=== PATIENT | male | born 1980 | race Caucasian/White ===

== ENCOUNTER → 2020-07-02 11:08 | Outpatient (BNVA) | payer MEDICARE, MEDICAID, SELFPAY | PROVIDERS: PCP Internal Medicine; Visit Provider Surgery | DX: E66.3 Overweight (principal); Z68.28 Body mass index [BMI] 28.0-28.9, adult; K90.9 Intestinal malabsorption, unspecified; Z98.84 Bariatric surgery status | CPT/HCPCS: 99213 ==

== ENCOUNTER → 2020-07-29 14:39 | Outpatient (BNVA) | payer MEDICARE, MEDICAID, SELFPAY | PROVIDERS: PCP Internal Medicine; Referring Provider Internal Medicine; Visit Provider Internal Medicine Cardiovascular Disease | DX: I42.9 Cardiomyopathy, unspecified (principal); Z98.84 Bariatric surgery status | CPT/HCPCS: 99212 ==

== ENCOUNTER → 2020-08-13 08:19 | Outpatient (BNVA) | payer MEDICARE, MEDICAID, SELFPAY | PROVIDERS: PCP Internal Medicine; Visit Provider Physician Assistant | DX: E66.3 Overweight (principal); Z68.27 Body mass index [BMI] 27.0-27.9, adult; K90.49 Malabsorption due to intolerance, not elsewhere classified; Z98.84 Bariatric surgery status | CPT/HCPCS: Q3014 ==

== ENCOUNTER → 2020-08-24 12:08 | Outpatient (REF) | payer MEDICARE, MEDICAID, SELFPAY ==
--- NOTE | 2020-08-24 12:35 | CA_ITS ---
Transthoracic Echocardiogram Patient (Last, First, Middle): Rickey Corbin, Gender: Male Date of : 1980 Age: 40 Procedure Date: 08/24/2020 Procedure Type: Transthoracic Echocardiogram Location: OP Height: 180.34 cm Weight: 87.54 kg BSA: 2.08 m2 Heart Rate: bpm BP: 122 / 82 mmHg Computer Support Specialist Instructor: Referring MD: Navid Quiroz MD Symptoms: I42.9 - Cardiomyopathy, unspecified Study Quality: Good Conclusions: - The left ventricular systolic function is normal. The visually estimated ejection fraction is between 55-60%. - No obvious valvular pathology seen on this study. Findings Left Ventricle Normal left ventricular cavity size. There is mildly increased left ventricular wall thickness. The left ventricular systolic function is normal. The visually estimated ejection fraction is between 55-60%. The calculated ejection fraction is 58% by biplane method. There is no evidence of regional wall motion abnormalities. Diastolic function is normal for age. Right Ventricle Normal right ventricular cavity size and systolic function. Atria The left atrium is normal in size. The right atrium is normal in size. Aortic Valve There is a normal trileaflet aortic valve. There is no aortic valve stenosis. There is no aortic valve regurgitation. Mitral Valve The mitral valve appears normal. There is trace mitral valve regurgitation. There is no mitral valve stenosis. Pulmonic Valve The pulmonic valve was not well visualized. Tricuspid Valve Normal tricuspid valve structure. There is trace tricuspid valve regurgitation. The pulmonary artery systolic pressure is normal. Great Vessels The aortic annulus, sinuses of valsalva, and asc aorta are normal in size. Venous The inferior vena cava is normal in size and collapses greater than 50% with inspiration. Pericardium/Pleural There is no evidence of pericardial effusion. Prior Study Comparison Changes noted compared to prior study dated: 09/05/2019. Improved LVEF. Recommendations, Care & Conclusions No obvious valvular pathology seen on this study. Measurements 2D Linear Measurements RVIDd: 3.58 RVIDd Index: 1.72 IVSd: 1.16 0.6-0.9/0.6-1.0 cm LVIDd: 5.53 3.9-5.3/4.2-5.9 cm LVIDd Index: 2.66 2.4-3.2/2.2-3.1 cm/m2 LVIDs: 3.15 2.0-3.6 cm LVPWd: 1.39 0.7-1.1 cm Ao Root: 3.60 2.1-3.5 cm LA Diam: 5.20 2.7-3.8/3.0-4.0 cm LAIDs Index: 2.50 1.5-2.3 cm/m2 LV Mass: 372.74 67-162/88-224 g LV Mass Index: 179.20 43-95/49-115 g/m2 LVOT Diam: 2.30 3.0+(-)1.3 cm 2D Systolic Function EF 4C: 58.60 >55% EF 2C: 58.00 >55% EF BiP: 58.00 >55% Mitral Valve MV Pk E: 0.77 MV PK A: 0.62 MV Decel Time: 299.00 E/A: 1.20 E'Lateral: 10.90 E'Medial: 7.62 E/E' Med: 10.00 E/E' Lat: 7.00 Aortic Valve AoV Pk Ramsey: 1.32 AoV Mn Ramsey: 1.07 AoV VTI: 0.30 AoV Pk Grad: 7.00 Aov Mn Grad: 5.00 ZANDER Cont.VTI: 2.98 LVOT LVOT Pk Ramsey: 1.12 LVOT Mn Ramsey: 0.70 LVOT VTI: 0.22 LVOT Pk Grad: 5.00 LVOT Mn Grad: 2.00 LVOT Diam: 2.30 LVOT Area: 4.15 Diastolic Function MV Pk E: 0.77 MV Pk A: 0.62 E/A: 1.20 E'Medial: 7.62 E/E' Med: 10.00 E' Laterial: 10.90 E/E' Lat: 7.00 Great Vessels Aorta Ao Root-2D: 3.60 2.0-3.7 cm Ao Asc: 3.10 2.1-3.4 cm Ao Arch: 3.10 Updated in Other Vendor System with Status of Final Salvador Groves MD electronically signed on 08/25/2020 11:43:43 AM with status of Final
[2020-08-24 13:03] LABS: MANUAL DIFF FLAG NO
[2020-08-24 13:07] LABS: Basophils Percent Auto 0.2 % (0-2); Eosinophils Absolute Auto 0.1 X10*3/uL (0.0-0.4); Eosinophils Percent Auto 1.2 % (0-4); Hematocrit 46.3 % (42-52); Hemoglobin 15.7 g/dl (14.0-18.0); Imm Gran Abs Auto 0.01 X10*3/uL (0.00-0.03); Imm Gran Pct Auto 0.2 % (0.0-0.4); Lymphocytes Absolute Auto 1.7 X10*3/uL (1.2-4.9); Lymphocytes Percent Auto 40.9 % (20-40); Mean Corpuscular HGB Conc 33.9 g/dl (31.0-36.0); Mean Corpuscular Hemoglobin 30.7 pg (27.0-33.0); Mean Corpuscular Volume 90.6 fL (80-98); Mean Platelet Volume 10.4 fL (9.4-12.4); Monocytes Absolute Auto 0.5 X10*3/uL (0.1-1.2); Monocytes Percent Auto 11.4 % (2-11); Neutrophils Absolute Auto 1.9 X10*3/uL (2.0-8.3); Neutrophils Percent Auto 46.1 % (45-73); Platelet Count 234 X10*3/uL (160-400); Red Blood Count 5.11 X10*6/uL (4.60-5.80); Red Cell Distribution Width 12.7 % (11.0-16.0); White Blood Count 4.1 X10*3/uL (4.8-10.8)
[2020-08-24 13:40] LABS: Alanine Aminotransferase 25 U/L (0-40); Albumin Level 4.5 g/dL (3.5-5.0); Alkaline Phosphatase 43 U/L (39-117); Anion Gap 11 (12-20); Aspartate Amino Transferase 15 U/L (5-37); Bilirubin Total 2.3 mg/dL (0.0-1.0); Blood Urea Nitrogen 13 mg/dL (9-16); C Reactive Protein 0.03 mg/dL (< or = 0.50); Calcium 9.7 mg/dL (8.4-10.2); Carbon Dioxide 32 mmol/L (22-29); Chloride 102 mmol/L (96-108); Cholesterol 163 mg/dL; Estimated Glomerular Filt Rate > 60; Glucose Fasting 115 mg/dL (60-99); HDL Cholesterol 68 mg/dL; Iron 120 mcg/dL (45-160); LDL Cholesterol Calculated 76 mg/dl; Percent Iron Saturation 35 % (15-50); Potassium 4.5 mmol/l (3.3-5.1); Sodium 140 mmol/L (135-145); Total Iron Binding Capacity 346 mcg/dL (228-428); Total Protein 6.8 g/dL (6.5-8.0); Triglycerides 98 mg/dL; Unsaturated Iron Binding 226 ug/dL
[2020-08-24 13:41] LABS: Estimated Average Glucose 100 mg/dL; Hemoglobin A1c % 5.1 %
[2020-08-24 14:00] LABS: Ferritin 178 ng/mL (20-250); TSH reflex Free T4 1.51 mIU/mL (0.32-4.0); Vitamin D 25-OH Total 56.2 ng/mL (>30)
[2020-08-24 14:15] LABS: Folate 18.4 ng/mL (> or = 4.0); Vitamin B12 751 pg/mL (200-900)
[2020-08-25 14:03] LABS: Calcium (PTHI) 9.8 mg/dL (8.6-10.3); PTHI 19 pg/mL (14-64)
[2020-08-25 21:48] LABS: Insulin Level Total 10.3 uIU/mL
[2020-08-28 03:11] LABS: Zinc 77 mcg/dL (60-130)
[2020-08-30 20:09] LABS: Vitamin A 66 mcg/dL (38-98)
[2020-09-01 10:57] LABS: Vitamin B1 23 nmol/L (8-30)
== END ==
LOC: HO.CARD 12:08
PROVIDERS: Physician Assistant; Visit Provider Internal Medicine Cardiovascular Disease
DX: E66.01 Morbid (severe) obesity due to excess calories (principal); K90.9 Intestinal malabsorption, unspecified; K90.49 Malabsorption due to intolerance, not elsewhere classified; E66.3 Overweight; I42.9 Cardiomyopathy, unspecified
CPT/HCPCS: 36415; 80053; 80061; 82306; 82607; 82728; 82746; 83036; 83525; 83540; 83970; 84425; 84443; 84590; 84630; 85025; 86140; 93306

== ENCOUNTER → 2020-10-04 08:53 | Outpatient (BNVA) | payer MEDICARE, MEDICAID, SELFPAY | PROVIDERS: Visit Provider Physician Assistant | DX: Z76.89 Persons encountering health services in other specified circumstances (principal) ==

== ENCOUNTER → 2020-10-12 08:29 | Outpatient (BNVA) | payer MEDICARE, MEDICAID, SELFPAY | PROVIDERS: Visit Provider Physician Assistant | DX: E66.3 Overweight (principal); K90.49 Malabsorption due to intolerance, not elsewhere classified; Z98.84 Bariatric surgery status | CPT/HCPCS: Q3014 ==

== ENCOUNTER → 2020-10-18 14:47 | Outpatient (BNVA) | payer MEDICARE, MEDICAID, SELFPAY | PROVIDERS: Visit Provider Internal Medicine Cardiovascular Disease | DX: I42.9 Cardiomyopathy, unspecified (principal); I10 Essential (primary) hypertension | CPT/HCPCS: 99212 ==

== ENCOUNTER → 2020-12-01 08:16 | Outpatient (BNVA) | payer MEDICARE, MEDICAID, SELFPAY | PROVIDERS: PCP Nurse Practitioner Family; Visit Provider Surgery | DX: E66.3 Overweight (principal); Z68.26 Body mass index [BMI] 26.0-26.9, adult; I10 Essential (primary) hypertension | CPT/HCPCS: 99212 ==

== ENCOUNTER 2021-01-04 08:29 | Inpatient (IN) | payer MEDICARE, MEDICAID, SELFPAY ==
[2020-12-30 10:16] VITALS: BMI 26.6
[2020-12-31 12:57] LABS: MANUAL DIFF FLAG NO
[2020-12-31 13:02] LABS: Basophils Percent Auto 0.2 % (0-2); Eosinophils Absolute Auto 0.1 X10*3/uL (0.0-0.4); Hematocrit 44.6 % (42-52); Hemoglobin 15.2 g/dl (14.0-18.0); Imm Gran Abs Auto 0.01 X10*3/uL (0.00-0.03); Imm Gran Pct Auto 0.2 % (0.0-0.4); Lymphocytes Absolute Auto 1.2 X10*3/uL (1.2-4.9); Lymphocytes Percent Auto 22.5 % (20-40); Mean Corpuscular HGB Conc 34.1 g/dl (31.0-36.0); Mean Corpuscular Hemoglobin 30.1 pg (27.0-33.0); Mean Corpuscular Volume 88.3 fL (80-98); Mean Platelet Volume 9.8 fL (9.4-12.4); Monocytes Absolute Auto 0.6 X10*3/uL (0.1-1.2); Monocytes Percent Auto 10.5 % (2-11); Neutrophils Absolute Auto 3.5 X10*3/uL (2.0-8.3); Neutrophils Percent Auto 65.6 % (45-73); Platelet Count 227 X10*3/uL (160-400); Red Blood Count 5.05 X10*6/uL (4.60-5.80); Red Cell Distribution Width 12.6 % (11.0-16.0); White Blood Count 5.3 X10*3/uL (4.8-10.8)
--- NOTE | 2020-12-31 13:20 | ECG_ITS ---
Test Reason : PREOP Blood Pressure : / mmHG Vent. Rate : 082 BPM Atrial Rate : 082 BPM P-R Int : 154 ms QRS Dur : 106 ms QT Int : 380 ms P-R-T Axes : 073 067 065 degrees QTc Int : 443 ms Normal sinus rhythm with sinus arrhythmia Normal ECG When compared with ECG of 04-SEP-2019 15:17, ST no longer depressed in Anterior leads T wave inversion no longer evident in Anterior leads Referred By: Lexus Rosado Electronically Signed By:MIKE TAPIA MD
[2020-12-31 13:24] LABS: Prothrombin Time 11.9 SEC (10.8-13.0)
[2020-12-31 13:31] LABS: Alanine Aminotransferase 24 U/L (0-40); Albumin Level 4.7 g/dL (3.5-5.0); Alkaline Phosphatase 39 U/L (39-117); Anion Gap 11 (12-20); Aspartate Amino Transferase 14 U/L (5-37); Bilirubin Total 2.2 mg/dL (0.0-1.0); Blood Urea Nitrogen 18 mg/dL (9-16); Calcium 9.8 mg/dL (8.4-10.2); Carbon Dioxide 32 mmol/L (22-29); Chloride 102 mmol/L (96-108); Creatinine Clr Calc Pharmacy 111.2; Estimated Glomerular Filt Rate > 60; Glucose Random 94 mg/dL (60-115); Potassium 3.9 mmol/L (3.3-5.1); Sodium 141 mmol/L (135-145); Total Protein 7.2 g/dL (6.5-8.0)
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
--- NOTE | 2021-01-03 19:25 | MHC.SHP ---
Pre-Procedural Eval Section A The patient is an INPATIENT: Yes The History & Physical has been completed within 30 days and I have reviewed it.: No Section B Chief Complaint: Panniculitis Details of Present Illness: Panniculitis Relevant Family History (Specify if Yes): No Present Medications: see Short Stay Collaborative assessment Medical History: No relevant PMH History of Previous Operations: Relevant previous surgery/procedure and date(s) (Sleeve gastrectomy) Allergies: Allergies Allergy/AdvReac Type Severity Reaction Status Date / Time tree nut [TREE NUT] Allergy Intermediate THROAT Verified 12/30/20 10:24 SCATCHY,SWELLING Review of Systems Sugical H&P ROS: Negative: Constitution, Cardiovascular, Respiratory, Neurological, Psychiatric, Hem-Onc, Allergic/Immunologic, Gastrointestinal, Genitourinary, Musculoskeletal, Integumentary, Endocrine and Eyes/Ears/Nose/Throat Exam Surgical H&P Exam: Normal: HEENT, Normal: Heart, Normal: Lungs, Normal: Extremities, Normal: Abdomen, Normal: Skin and Normal: Neurological Plan Diagnosis/Plan: Unchanged (Patient with massive weight loss and skin problems. Plan for panniculectomy. Risks and complications were discussed with the patient including loss of umbilicus, skin flap necrosis, infection, asymmetry, wound dehiscence, seroma, bleeding requiring transfusion. Patient understands.) I have reviewed the history and physical and performed a pertinent physical examination on my patient. No changes have occurred unless specified.
[2021-01-04] VITALS (12 sets, daily range): BP systolic 124–148; BP diastolic 76–89; PULSE 64–91; RESP 14–20; TEMP 36.2–37; O2SAT 95–100
[2021-01-04] MEDS: Lactated Ringers 1,000 ML 100 ML IVCONT (09:01)
[2021-01-04 09:47] LABS: COVID-19 Test Negative (Negative); IDNOW Serial# 9DD0AD1C
--- NOTE | 2021-01-04 09:49 | PM.OP ---
Brief Operative Note Date of Service: 01/04/21 Pre-op diagnosis: Panniculitis Post-op diagnosis: same Procedure: PROCEDURE: Panniculectomy INDICATION: This a 40 year old male who underwent laparoscopic sleeve gastrectomy on 12/02/2019. He had an excellent result achieving a BMI of 27.6 kg/m2 with a total weight loss of 153.8lbs, or 44.5% of his TBWL. As a result, he has developed panniculitis which has not resolved despite continuous use of clotrimazole ointment. On exam he has extreme skin laxity due to massive weight loss. Panniculectomy was recommended. I discussed the two options for the panniculectomy of using a combined vertical and horizontal incisions or just a horizontal (bikini) incision. It was my recommendation to do only horizontal incision based on her body habitus and skin laxity. The patient agreed with this. Risks and complications were discussed with the patient including bleeding, infection, umbilical loss, flap necrosis, asymmetry, dehiscence, seroma, VTE. The patient understood the risks and was in agreement to proceed with surgery. PROCEDURE: The incisions were appropriately marked at the preop area with the patient standing and laying down. After induction of general anesthesia a Peck catheter and pneumatic compression devices were placed. The patient was prepped and draped in the usual sterile manner and the incisions were marked again and confirmed. The skin was infiltrated with lidocaine and epinephrine. The #10 blade scalpel was used for the large incisions and the #15 blade scalpel for the umbilicus. Cautery was used to divide the subcutaneous tissues until the fascia was identified. Then I used the Thunderbeat (Olympus) to separate the pannus from the fascia. The inferior incision was made initially and I mobilized the flap for a several centimeters cephalad. I felt that there was no need, given the patient's anatomy to extend the superior incision above the umbilicus. Therefore the superior incision was made inferior to the umbilicus about 2cm inferior to the umbilicus. The subcutaneous tissues were divided with the Thunderbeat. No bleeding was noted anywhere. One MICHELE drain was placed from the right corner of the horizontal incision across the wound and was secured in place with a silk suture. The zuri's fascia was re-approximated with interrupted 2.0 Monocryl sutures. The subcutaneous fat flap was secured under the inferior flap with several interrupted 3.0 Monocryl sutures. The two flaps were brought together and were attached at the midline of the horizontal incision with a #3.0 Monocryl suture. In a similar fashion the skin flaps were re-approximated with multiple 3.0 Monocryl sutures. The skin was closed in all incisions and umbilicus with 4.0 Monocryl sutures. Steri-strips, xeroform gauzes and gauzes were used to cover the incisions. An abdominal binder was also placed. The was awaken and was transferred to the recover room in a stable condition. I was present and performed the entire procedure. Crouch was the payroll administrative assistant. Daren Law MD, PhD, FACS Surgeon: Radu Law MD Anesthesia: GETA and local Bricklayer Supervisor: Laurel Crouch Estimated blood loss (mL): 10 IV fluids (mL): 1,500 Urine output (mL): 0 (No Peck to record) Pathology: other (Abdominal pannus) Condition: stable Disposition: PACU
--- NOTE | 2021-01-04 09:50 | PM.PNGS ---
Subjective Subjective Date of Service: 01/05/21 Interval history: Patient has mild incisional pain. Is tolerating phase 2 bariatric diet. Physical Exam Vital Signs: Vital Signs: Last Vital Signs Temp 98.6 F 01/04/21 08:38 Pulse 64 01/04/21 08:38 Resp 16 01/04/21 08:38 BP 136/79 01/04/21 08:38 Pulse Ox 99 01/04/21 08:38 Body Mass Index 26.6 GI: Inspection: Yes normal to inspection (no erythema, umbilical or flap necrosis), Yes incision (dry, clean and intact) and Yes other (MICHELE with serosanguinous fluid.) Extrem: Right lower extremity: normal to inspection (no calf tenderness) Left lower extremity: normal to inspection (no calf tenderness) Progress Note: A&P Assessment and plan (1) Panniculitis: Status: Acute Assessment and Plan: 40 year old male was admitted 01/04/2021 with panniculitis. Problem 1: s/p panniculectomy with umbilical transposition and bilateral subcutaneous fat flaps Status: Doing well Plan: Check am labs, If OK, ambulate, will continue phase 1 bariatric diet and discharge later today. (2) S/P laparoscopic sleeve gastrectomy: Problem details: DOS 12/02/19, Dr. Law Status: Acute (3) S/P panniculectomy: Status: Acute (4) Hypertension: Problem details: Controlled. Status: Acute (5) Cardiomyopathy: Problem details: resolving due to weight loss-sees Status: Acute Fall Risk Details Current Medications: Current Medications Generic Name Dose Route Start Last Admin Trade Name Freq PRN Reason Stop Dose Admin Lactated Ringer's 1,000 mls @ 80 mls/hr 01/03/21 19:30 Lr IVCONT .[id number] EARL Lactated Ringer's 1,000 mls @ 100 mls/hr 01/04/21 08:30 01/04/21 09:01 Lr IVCONT 100 mls/hr .Q10H EARL Administration Time Spent With Patient Time: Total time spent is greater than 50% in coordination of care (as documented) at patient's floor/unit and/or counseling patient: Time with patient: less than 15 minutes
--- NOTE | 2021-01-04 12:56 | P.DS_ITS ---
DS: Providers Provider Date of Service: 01/05/21 Date of admission: 01/04/21 08:29 Primary care physician: Debbie Milligan NP DS: Diagnosis Discharge Diagnosis (1) Panniculitis: Status: Acute (2) S/P laparoscopic sleeve gastrectomy: Status: Acute Problem details: DOS 12/02/19, Dr. Law DS: Medications Discharge Medications Home Medications: Home Medications Medication Instructions Recorded Confirmed albuterol sulfate 90 mcg/actuation 2 inh INHALATION Q4H PRN 07/29/20 12/30/20 aerosol inhaler dextroamphetamine-amphetamine ER 30 mg PO BID 07/29/20 12/30/20 30 mg 24hr capsule,extend release Celebrate MVI PO 10/12/20 12/01/20 Celebrate calcium/D 1 puff PO DAILY 10/12/20 12/30/20 oxycodone-acetaminophen 5 mg-325 1 tab PO Q6H 10/18/20 12/30/20 mg tablet fluticasone propionate 50 1 spray INTRANASAL DAILY PRN 12/01/20 12/30/20 mcg/actuation nasal spray,suspension cetirizine 10 mg PO DAILY 12/30/20 12/30/20 Previous Rx's Medication Instructions Recorded amlodipine 5 mg tablet 5 mg PO DAILY #30 tab 11/10/20 bismuth tribrom-petrolatum,wh 1 X #200 ea 12/30/20 8 bandage cephalexin 500 mg capsule 500 mg PO Q12H #30 cap 12/30/20 DS: Summary Time Spent with Patient Time attestation: DISCHARGE SUMMARY ADMITTING DIAGNOSIS: panniculitis, s/p lap LSG DISCHARGE DIAGNOSIS: The same. PAST SURGICAL HISTORY: Lap sleeve gastrectomy 12/02/2019, hiatal hernia repair. PROCEDURE: Panniculectomy. HISTORY OF PRESENT ILLNESS: The patient is a 40 year-old male with a BMI of _26.6 kg/m2 and associated co- morbidities as described previous. The patient had a laparoscopic sleeve gastrectomy on 12/02/19 and has lost a total of 153.8 lbs, or 44.5% of his initial weight. As a result of the massive weight loss she developed a large abdominal pannus and persistent panniculitis recalcitrant to medical treatment. The patient was electively scheduled for panniculectomy. Risks and complications of the surgery were discussed with the patient in advance, particularly the possibility of , pulmonary embolism, skin necrosis, loss of umbilicus, flap necrosis, wound dehiscence, flap asymmetry, bleeding requiring transfusion. The patient understood all the risks and was in agreement with the surgical plan. On postoperative day #1 the patient was started on Phase 3 bariatric diet. The Peck was discontinued. He was allowed to ambulate and she had no dizziness. During the first day, the patient did fairly well, having some incisional pain, but able to ambulate adequately and to tolerate liquids well. All dressings were taken down and the all incisions were inspected. There was no evidence of infection or bleeding or significant discharge. All flaps and umbilicus were viable and there was no dehiscence. MICHELE drain had minimal output with serosangu inous fluid. Since the patient is doing well, we decided that the patient was ready to be discharged. The patient was given instructions to follow-up with me next week and to call my office for any fever over 101, persistent abdominal pain, nausea, vomiting, and symptoms of DVT such as calf tenderness, or leg swelling, or pulmonary embolism such as chest pain or shortness of breath. The patient was also instructed to drink 40-60 ounces of liquids per day using the 1-ounce cups and start on 3 Pure protein shakes per day. The patient was given prescription for Tylenol for pain, Zofran prn for nausea and a 10-day course of Keflex twice a day. The patient was encouraged to ambulate and use the incentive spirometer. However it was strongly recommended to do so with assistance and avoid any abd ominal straining for at least one month. The patient was allowed only to do sponge baths, and encouraged to use the recliner at home and not the bed. All of these instructions were given to the patient personally. All questions were answered and the patient understood all instructions. The instructions were given to the patient in print as well. Total time spent providing and/or coordinating discharge services:15 Discharge coordination time: Less than 30 minutes Physical Exam Vital Signs: Vital Signs: Last Vital Signs Temp 98.5 F 01/04/21 12:45 Pulse 84 01/04/21 12:55 Resp 18 01/04/21 12:55 BP 133/83 01/04/21 12:55 Pulse Ox 99 04/06/21 12:55 Body Mass Index 26.6 DS: Data Data Completed and Pending Pending studies at discharge: Pending at discharge 01/04/21 12:22 Surgical [PTH] Routine Labs on day of discharge: Laboratory Results - last 24 hr 01/04/21 08:30 COVID-19 ([facility]) Negative COVID-19 Clin Com See Note Discharge Plan Discharge Anticipated Discharge Date/Time: 01/05/21 12:52 Patient Disposition: Home, Self-Care Referrals: nia parisi [Other] Debbie Milligan NP [Primary Care Provider] - Discharge Medications: Continued cephalexin 500 mg capsule 500 mg PO Q12H Qty: 30 RF: 1 cetirizine 10 mg Tablet 10 mg PO DAILY RF: 0 oxycodone-acetaminophen [Percocet] 5-325 mg tablet 1 tab PO Q6H RF: 0 amlodipine 5 mg tablet 5 mg PO DAILY Qty: 30 RF: 3 Celebrate MVI PO RF: 0 Celebrate calcium/D 1 puff PO DAILY RF: 0 fluticasone propionate 50 mcg/actuation spray,suspension 1 spray intranasal DAILY PRN (Reason: Nasal Congestion) RF: 0 albuterol sulfate 90 mcg/actuation HFA aerosol inhaler 2 inh inhalation Q4H PRN (Reason: Wheezing) RF: 0 dextroamphetamine-amphetamine [Adderall XR] 30 mg capsule,extended release 24hr 30 mg PO BID RF: 0 No Action (DME) Xeroform Petrolatum Dressing 1 X 8 bandage See Rx Instructions .ROUTE .MEDSUPPLY Qty: 200 RF: 0 Discharge Orders: Discharge Order (Routine); Ordered 01/05/21 Ordered By: Radu Law Diet: other Activity on Discharge: Rest with bed elevated Stand Alone Forms: Patient Portal Discharge page Activity Restrictions/Additional Instructions: 1) Record drain output for all 24 hour periods on drain output sheet. Bring sheet at the next office visit 2) Start Keflex antibiotic 3) No showers. Only sponge baths 4) Avoid any tension on the abdomen and always have help getting up. Use your arms to push off from chair/bed. 5) Take 1 tab of Colace and one tablespoon of Metamucil daily 6) Diet: 4 protein shakes, or 3 shakes and one bar, or 3 shakes and one meal (2oz meat and 2oz salad) 7) Wear binder at all times 8) Change dressings daily and send pictures to Dr. Law. Replace loose steri-strips and xeroform gauze along the incisions and umbilicus. 9) Supplies needed: ABD pads, 4x4 dressings, xeroform gauze, 1/2'' steri-strips, paper tape. You will need to use several of the above supplies on a daily basis. Care Plan Goals: resolution of panniculitis Health Concerns: panniculitis Plan of Treatment: see discharge summary Discharge Date/Time: 01/05/21 10:24
[2021-01-04] MEDS: Lactated Ringers 1,000 ML 125 ML IVCONT ×2 (14:48→22:31)
[2021-01-04] MEDS: 0.9 % Sodium Chloride Flush 3 ML SYRINGE IVFLUSH ×2 (16:06→22:31)
[2021-01-04] MEDS: ceFAZolin Sodium/Dextrose,Iso 2 GM/50 ML PIGGYBACK IV (16:06)
[2021-01-04] MEDS: oxyCODONE HCl Immed Release 5 MG TABLET PO (17:47)
[2021-01-04] MEDS: HYDROmorphone HCl 0.5 MG/0.5 ML SYRINGE 0.25 MG IVPUSH ×2 (19:28→23:31)
[2021-01-04] MEDS: ondansetron HCL 4 MG/2 ML VIAL IVPUSH (22:31)
[2021-01-05] MEDS: oxyCODONE HCl Immed Release 5 MG TABLET PO (03:04)
[2021-01-05 03:31] VITALS: BP 127/73; PULSE 77; RESP 20; TEMP 36.4; O2SAT 94
[2021-01-05 04:14] LABS: MANUAL DIFF FLAG NO
[2021-01-05 04:19] LABS: Basophils Percent Auto 0.1 % (0-2); Hematocrit 40.2 % (42-52); Hemoglobin 13.9 g/dl (14.0-18.0); Imm Gran Abs Auto 0.06 X10*3/uL (0.00-0.03); Imm Gran Pct Auto 0.4 % (0.0-0.4); Lymphocytes Absolute Auto 1.4 X10*3/uL (1.2-4.9); Lymphocytes Percent Auto 10.4 % (20-40); Mean Corpuscular HGB Conc 34.6 g/dl (31.0-36.0); Mean Corpuscular Hemoglobin 30.5 pg (27.0-33.0); Mean Corpuscular Volume 88.4 fL (80-98); Mean Platelet Volume 9.6 fL (9.4-12.4); Monocytes Percent Auto 7.3 % (2-11); Neutrophils Absolute Auto 11.3 X10*3/uL (2.0-8.3); Neutrophils Percent Auto 81.8 % (45-73); Platelet Count 232 X10*3/uL (160-400); Red Blood Count 4.55 X10*6/uL (4.60-5.80); Red Cell Distribution Width 12.5 % (11.0-16.0); White Blood Count 13.8 X10*3/uL (4.8-10.8)
[2021-01-05 04:57] LABS: Anion Gap 13 (12-20); Blood Urea Nitrogen 13 mg/dL (9-16); Calcium 8.9 mg/dL (8.4-10.2); Carbon Dioxide 27 mmol/L (22-29); Chloride 102 mmol/L (96-108); Creatinine Clr Calc Pharmacy 139.4; Estimated Glomerular Filt Rate > 60; Glucose Random 129 mg/dL (60-115); Potassium 3.9 mmol/L (3.3-5.1); Sodium 138 mmol/L (135-145)
[2021-01-05] MEDS: ondansetron HCL 4 MG/2 ML VIAL IVPUSH (06:09)
[2021-01-05] MEDS: Lactated Ringers 1,000 ML 125 ML IVCONT (06:09)
[2021-01-05 07:09] VITALS: BP 131/80; PULSE 68; RESP 17; TEMP 36.8; O2SAT 97
[2021-01-05] MEDS: HYDROmorphone HCl 0.5 MG/0.5 ML SYRINGE 0.25 MG IVPUSH (07:22)
[2021-01-05] MEDS: amLODIPine Besylate 5 MG TABLET PO (07:23)
--- NOTE | 2021-01-05 08:29 | MHC.CM.PN ---
pt lives c his s.o. in their home. he reports that he is independent in his care. his. s.o. can help him c any needs he may have if necessary. his father will be providing transportation home at [place]. pt has requested to have [facility] provide svcs at [place] as pt will likely be returning home c MICHELE drain. ref. has been made to agency that svcs pt's geography. dc plan is home c [facility]na for nsg. cm to cont. to follow.
--- NOTE | 2021-01-05 14:39 | HO.POSTANES ---
Post Anesthesia Evaluation Post Anesthesia Evaluation Vital Signs: Vital Signs Temp Pulse Resp BP Pulse Ox 01/05/21 07:09 98.2 F 68 17 131/80 97 01/05/21 03:31 97.6 F 77 20 127/73 94 Anesthesia: General Endotracheal-GETA Mental Status: Awake Pain Control: Satisfactory Nausea/Vomiting: None Hydration: Adequate Anesthesia-Related Issues: No Anes. Related Issues
== END 2021-01-05 10:24 | disposition home or self-care (01) | DRG 571 ==
LOC: HO.SSSA 12:55 → HO.S3 13:25
PROVIDERS: Physician Assistant; Admitting Provider Surgery; PCP Nurse Practitioner Family; Visit Provider Surgery
PROC: 0JB80ZZ Excision of Abdomen Subcutaneous Tissue and Fascia, Open Approach (ICD-10-PCS; CPT 15830; principal; 2021-01-04 09:40)
DX: M79.3 Panniculitis, unspecified (principal); I42.9 Cardiomyopathy, unspecified; I10 Essential (primary) hypertension; F17.210 Nicotine dependence, cigarettes, uncomplicated; Z98.84 Bariatric surgery status; Z71.6 Tobacco abuse counseling; Z20.822 Contact with and (suspected) exposure to COVID-19; Z79.51 Long term (current) use of inhaled steroids; Z79.899 Other long term (current) drug therapy
CPT/HCPCS: 36415; 80048; 80053; 85025; 85610; 85730; 86850; 86900; 87635; 88304; 93005; 99024; J0131; J0690; J1100; J1170; J2250; J2405; J3010

== ENCOUNTER 2021-01-14 07:33 | Outpatient (REF) | payer MEDICARE, MEDICAID, SELFPAY ==
--- NOTE | ~2021-01-14 | CT_ITS ---
EXAMINATION: CT ABDOMEN AND PELVIS WITHOUT CONTRAST CLINICAL INFORMATION: Postop hematoma post panniculectomy COMPARISON: None TECHNIQUE: Multidetector volumetric imaging was performed from the superior aspect of the liver through the pubic symphysis. Sagittal and coronal reformatted images were obtained on the technologist's workstation. This CT examination was performed using dose optimization techniques as appropriate, variously including the following: *Automated exposure control *Adjustment of mA and/or kV according to patient size (this includes techniques or standardized protocols for targeted exams where dose is matched to indication/reason for exam; i.e. extremities or head) *Use of iterative reconstruction technique DLP: 547 mGy-cm FINDINGS: LUNG BASES: The visualized lung bases are unremarkable. LIVER, GALLBLADDER, AND BILIARY TREE: The liver is normal in size, shape, and attenuation. No focal hepatic lesion or biliary ductal dilatation is present. The gallbladder is unremarkable with no evidence of radiopaque gallstones, gallbladder wall thickening, or obvious pericholecystic inflammatory changes. PANCREAS: There is a 1.5 cm low-attenuation lesion in the uncinate process of the head of the pancreas axial image 26 series 3. Hounsfield units measure 10 suggestive of a cyst. SPLEEN: Unremarkable. ADRENAL GLANDS: There is a 1.2 cm low-attenuation left adrenal lesion axial image 25 series 3. Hounsfield units without contrast measure 5 just above an adenoma. The right adrenal gland is normal-appearing. KIDNEYS AND URETERS: There is abnormal contour to the lateral midpole of the left kidney. This area measures approximately 1.3 cm axial image 30 series 3 and coronal reconstructed image 108. This is similar in attenuation to the renal cortex. It is uncertain whether this represents a renal lesion or atypical appearance of a dromedary hump. The kidneys are otherwise unremarkable. BLADDER: Unremarkable. GASTROINTESTINAL TRACT: There are postoperative changes from gastric sleeve procedure. The small and large bowel are unremarkable. The appendix is not seen. There are no inflammatory changes in the right lower quadrant. ABDOMINAL WALL: There are postoperative changes to the lower abdominal wall. There is a surgical drainage catheter. There is stranding of the fat deep and inferior to the drainage catheter. There is question of a small focal fluid collection measuring 1.4 x 3 x 1.8 cm axial image 70 series 3 and sagittal reconstructed image 100. There is a very small umbilical hernia containing fat. LYMPH NODES: Normal. VASCULAR: Unremarkable. PELVIC VISCERA: Prostate gland is slightly prominent measuring 4.4 x 5.3 cm in AP and transverse dimension. OSSEOUS STRUCTURES: Unremarkable. CT/CT abdomen pelvis wo con IMPRESSION: Postoperative changes to the anterior abdominal wall. Satisfactory position of surgical drainage catheter. Stranding of the fat deep and inferior to the drainage catheter. Question small focal fluid collection measuring 1.4 x 3 x 1.8 cm just deep to the drainage catheter. Differential would include postoperative change, hematoma and abscess. 1.5 cm cyst in the head of the pancreas. Abnormal contour/atypical appearance of dromedary hump versus a mass exophytic to the lateral upper to midpole of the left kidney. Follow-up pancreas and renal imaging with and without contrast with either CT or MRI recommended.
== END 2021-01-14 07:34 | disposition home or self-care (01) ==
LOC: HO.CT 07:33
PROVIDERS: PCP Nurse Practitioner Family; Visit Provider Surgery
DX: R10.11 Right upper quadrant pain (principal); L76.32 Postprocedural hematoma of skin and subcutaneous tissue following other procedure; Z98.890 Other specified postprocedural states
CPT/HCPCS: 74176; 99212

== ENCOUNTER → 2021-01-24 07:30 | Outpatient (BNVA) | payer MEDICARE, MEDICAID, SELFPAY | PROVIDERS: PCP Nurse Practitioner Family; Visit Provider Surgery | DX: Z48.815 Encounter for surgical aftercare following surgery on the digestive system (principal); Z90.49 Acquired absence of other specified parts of digestive tract | CPT/HCPCS: 99212 ==